=== PATIENT | female | born 1960 | race Caucasian/White ===

== ENCOUNTER 2020-05-17 14:24 | Emergency (ER) | payer OTHER, BC ==
[~2020-05-17] VITALS: Ht 165.1 cm; Wt 113.4 kg
[2020-05-17] MEDS ORDERED: Norco 7.5-3251 EACH PO (15:26)
[2020-05-17] MEDS ORDERED: METTREX2.5 PO (15:32)
[2020-05-17] MEDS ORDERED: FOLI1 PO (15:32)
[2020-05-17] MEDS ORDERED: CONEST.625 PO (15:33)
== END 2020-05-17 17:19 | disposition home or self-care (01) ==
LOC: ER 14:24
DX: S43.014A Anterior dislocation of right humerus, initial encounter (principal); Z91.09 Other allergy status, other than to drugs and biological substances; Z79.899 Other long term (current) drug therapy; W18.09XA Striking against other object with subsequent fall, initial encounter
CPT/HCPCS: 29105; 73060; 96372-59; 99283-25; A9270-GY; J1170